=== PATIENT | female | born 1995 | race Hispanic/Latino ===

== ENCOUNTER 2020-03-10 09:17 | Inpatient (IN) | payer OTHER ==
[~2020-03-10] VITALS: Ht 149.9 cm; Wt 98.6 kg
[2020-03-10] VITALS (12 sets, daily range): BP systolic 103–136; BP diastolic 51–70
[2020-03-10] MEDS ORDERED: LACTATED RINGER'S 1000 ML IV STA (09:49)
[2020-03-10] MEDS ORDERED: PRENTAB9 PO (10:47)
[2020-03-10] MEDS ORDERED: LR 1,000 ML IV SCH (11:00)
[2020-03-10] MEDS ORDERED: BUTORPHANOL 2 MG/ML INJ (J0595) IV ONE (11:00)
[2020-03-10] MEDS ORDERED: PENICILLIN G POTASSIUM IV 5 MU in D5W MINI-BAG PLUS 100 ML IV ONE (11:00)
[2020-03-10 11:05] LABS: HEMATOCRIT 33.9 % (36.0-47.0); HEMOGLOBIN 10.3 g/dl (12.0-15.5); MEAN CORPUSCULAR HEMOGLOBIN 25.2 pg (27.0-33.0); MEAN CORPUSCULAR HGB CONC 30.4 g/dl (32.0-36.5); MEAN CORPUSCULAR VOLUME 82.9 fl (80.0-96.0); PLATELET COUNT, AUTOMATED 250 10^3/uL (150-450); RED BLOOD COUNT 4.09 10^6/uL (4.00-5.40); WHITE BLOOD COUNT 8.6 10^3/uL (4.0-10.0)
--- NOTE | 2020-03-10 11:33 | HPEPDOC ---
Obstetrical History & Physical General Date of Admission March 10, 2020 at 09:52 History of Present Illness Neris is a 25yo with SIUP at 39w1d by lmp c/w 9wk u/s presenting this morning for persistent painful ctx that began at 0500. Interview performed with hot man on ipad as patient only speaks Congolese. No LOF, good movement, no vaginal bleeding. No f/c/n/v/CP/SOB. Chief Complaint: Contractions, term Information Provided By: Patient Care Care: Good Care Dating Final EDC: March 15, 2020 Final EDC by: LMP, 1st trimester (US) Antepartum Course Diagnos(e)s Obesity (starting BMI 33), transfer in at 37 weeks, O negative MBT received rhogam at 28wk, GBS positive, anemia, on anatomy scan: left pyelectasis 0.83cm, right hydro 1.08cm Height (inches): 59 Pre- weight (lbs.): 165 Admission Weight (lbs.): 179 Change in Weight (lbs.): 14 Past Medical History Past Obstetrical History : Past Obstetrical History: Primgravida [employer] History: No pertinent history Past Medical History Medical History Obesity starting BMI 33 Surgical History: Denies/None Family History Significant Family History: No pertinent family hx Social History Marital Status: Family situation: Spouse/partner home Psychosocial History: No pertinent psych hx * Smoker: non-smoker Alcohol: Denies Drugs: denies Allergies Coded Allergies: No Known Allergies (Unverified , 03/10/20) Medications Scheduled No.137/Iron/Folic Acd ( Vitamin Tablet) 1 Each Tablet, 1 TAB PO DAILY Physical Examination Physical Examination GENERAL: Alert and oriented times three. ABDOMEN: Gravid and non-tender to touch. FETUS: Is vertex (VTX) by sterile vaginal examination (SVE) EXTREMITIES: No edema of BLE Vital Signs/I&O Vital Signs Date Time Temp Pulse Resp B/P (MAP) Pulse Ox O2 Delivery O2 Flow Rate FiO2 03/10/20 09:31 98.2 87 136/62 (86) Laboratory Data 24H LABS Laboratory Tests 2 03/10/20 10:01: Serology Scanned Report Hepatitis B Testing 03/10/20 10:43: 03/10/20 10:49: Nucleated Red Blood Cells % (auto) 0.0 CBC/BMP Laboratory Tests 03/10/20 10:49 Pertinent Laboratoy Data Blood Type: O- RBC Antibody Screen: Negative HIV: Negative Hepatitis B: Negative Hepatitis C: Unknown Rapid Plasma Reagin: Nonreactive Rubella: Immune Varicella: Immune Chlamydia/Gonorrhea: Unknown Group B Streptococcus: Positive Glucose Tolerance Test: 114 Anatomy Ultrasound Ultrasound Date: Nov 23, 2019 Placenta Location: Anterior Normal Anatomy: No (left pyelectasis 0.83cm, right hydro 1.08cm) Placenta Previa: No Steroid Therapy Steroid Therapy: No Vaginal Examination Dilation: 6 cm Effacement: 100% Station: -2 Cervical Consistency: Soft Cervical Position: Anterior Presentation: Cephalic presentation Assessment Heart Rate (FHR): 130 Variability: Moderate Accelerations: Positive Decelerations: Variable (occasional non-repetitive) Tocometer Contractions: Yes Frequency: regular, every 2-5 min. Duration: greater than 60 seconds Strength: palpated as strong Assessment/Plan Assessment Neris is a 25yo with SIUP at 39w1d by lmp c/w 9wk u/s in active labor with SCE 6/C/-2, ctx q2-5min. Intact membranes. Vitals wnl, afebrile, benign exam. Cat I-II FHRT with very small occasional variable decels, otherwise mod sanchez and +accels. PMhx/PNC complicated by: Obesity (starting BMI 33), transfer in at 37 weeks, O negative MBT received rhogam at 28wk, GBS positive, anemia, on anatomy scan: left pyelectasis 0.83cm, right hydro 1.08cm Plan Admit and orient. Collections Technician and consent. Diet: clear liquids Group B Streptococcus (GBS) positive: PCN per protocol Labs and intravenous (IV) per unit protocol. Lactated Ringers (LR): Bolus 1000 mL, then at 125 mL/hr. Anticipate normal spontaneous delivery () Candidate for epidural in active labor if desired Will notify NICU doctor regarding u/s finding of pyelectasis/hydro No g/c dna on file, will obtain urine g/c dna Safe to proceed MD Manjit Schulz Katrina D MD March 10, 2020 11:33
[2020-03-10] MEDS ORDERED: FENTANYL 2MCG/ML ROPIVACAINE 0.2% IN 0.9% NACL 100ML IVBAG As Ordered ONE (11:35)
[2020-03-10] MEDS ORDERED: OXYTOCIN 30 UNITS IN 0.9% NaCl 500ML IV BAG (J2590) As Ordered ONE (13:54)
[2020-03-10] MEDS ORDERED: MEASLES,MUMPS,RUBELLA VACCINE INJ (MMR-II) (90707) SC SCH (14:45)
[2020-03-10] MEDS ORDERED: DIBUCAINE 1% OINTMENT 30GM TOP PRN (14:45)
[2020-03-10] MEDS ORDERED: RHOGAM 300 MCG (1500 IU) INJ (J2790) IM SCH (14:45)
[2020-03-10] MEDS ORDERED: ACETAMINOPHEN TAB 650MG DOSE (2X325MG) PO PRN (14:45)
[2020-03-10] MEDS ORDERED: DOCUSATE SODIUM 100 MG CAP PO PRN (14:45)
[2020-03-10] MEDS ORDERED: IBUPROFEN 600 MG TAB PO PRN (14:45)
[2020-03-10] MEDS ORDERED: LIDOCAINE 1% MDV 20ML VIAL INFIL ONE (15:00)
[2020-03-10] MEDS ORDERED: OXYTOCIN DRIP 30 UNITS in IV 1 EA IV SCH (15:00)
[2020-03-10] MEDS ORDERED: PENICILLIN G POTASSIUM IV 2.5 MU in IV 1 EA IV SCH (15:15)
[2020-03-10] MEDS: IBUPROFEN 800 MG TAB PO PRN (15:40)
--- NOTE | 2020-03-10 17:12 | DNPDOC ---
[facility] Delivery Note Delivery Note DATE OF DELIVERY: 03/10/2020 PREDELIVERY DIAGNOSIS: 39w2d gestation and labor. POST DELIVERY DIAGNOSIS: Delivered. PROCEDURE: Spontaneous vaginal delivery MUSIC LIBRARY ASSISTANT: Dr. Indira Saravia MD ANESTHESIA: 1% lidocaine for repair ESTIMATED BLOOD LOSS: 350 mL. FINDINGS: 6 pound 9 ounce (2980g) female , Score 8/9, nuchal cord times 1 DELIVERY SUMMARY: Neris is a 24yo [id number] s/p uncomplicated at 13:53 on 03/10/20 when she presented to L&D in active labor at 39w2d. She progressed without epidural, experienced explosive SROM all over the floor when she was standing, thick meconium, and had recurrent variable heart rate decels. Soon after, she had a reducible anterior lip, and I instructed her to begin pushing. Within just a few sets of pushes, 's head delivered OA, restituted DELIA. Left anterior shoulder delivered with ease followed by right posterior shoulder, then remainder of body delivered to maternal abdomen where was dried and stimulated; nose and mouth suctioned with bulb suction, strong, lusty cry, apgars 8/9. At 2 minutes of life, cord clamped x2 and cut by FOB. Cord blood collected at this time for MBT O neg. With uterine massage and traction on the cord, placenta delivered spontaneously and intact with 3 vessel centrally inserted cord. Pitocin bolus started with delivery of placenta. Fundus then firm at u-1cm with hemostasis noted. Upon inspection of vagina and perineum, left and right labial lacerations and a 2mll were noted and repaired with 3-0 vicryl suture in usual fashion. Good cosmetic effect with total reapproximation and complete hemostasis noted. All counts correct x2. Mom and infant were doing well when I left the room. MD Manjit Schulz Katrina D MD March 10, 2020 16:21
[2020-03-10 18:51] LABS: CHLAMYDIA DNA AMPLIFICATION NEGATIVE (NEGATIVE); GC DNA AMPLIFICATION NEGATIVE (NEGATIVE)
[2020-03-10] MEDS: ACETAMINOPHEN 500 MG TAB PO PRN (21:27)
[2020-03-11 05:01] VITALS: BP 111/62
[2020-03-11] MEDS: PRENATAL VITAMINS CHEWABLE TABLET PO SCH (08:25)
[2020-03-11] MEDS: ACETAMINOPHEN 500 MG TAB PO PRN (08:26)
--- NOTE | 2020-03-11 09:52 | IPNPDOC ---
Progress Note Date of Service: March 11, 2020 Day#: 1 Progress Note PPD 1 SUBJECT: Neris is a 24yo [id number] s/p uncomplicated at 39w2d on 10 March at 13:53 after presenting in active labor, doing well day # 1. She has been ambulating, voiding spontaneously without issue and tolerating regular diet. Breast feeding without issue. Minimal discomfort. Reports lochia is like a normal period. No lightheadedness/dizziness, f/c/n/v/CP/SOB. OBJECTIVE: VITAL SIGNS: Within normal limits, afebrile. Alert and oriented times three. Abdomen: Fundus firm at U-2. Soft, NTTP. Extremities: trace edema of BLE, no pain with palpation of calves ASSESSMENT: Neris is a 24yo [id number] s/p uncomplicated at 39w2d on 10 March at 13:53 after presenting in active labor, doing well day # 1. Vitals within normal limits, afebrile, hemodynamically stable with no evidence of infection. PLAN: 1. Routine care 2. Tylenol and Motrin for pain. 3. Encourage breast feeding and ambulation. 4. Regular diet 5. Possible discharge tomorrow if meeting all milestones Dr. Indira Saravia MD VS, I&O, 24H, Fishbone Vital Signs/I&O Vital Signs Date Time Temp Pulse Resp B/P (MAP) Pulse Ox O2 Delivery O2 Flow Rate FiO2 03/11/20 05:01 98.6 85 15 111/62 (78) 99 Room Air I&O- Last 24 Hours up to 6 AM 03/11/20 06:00 Intake Total 2530 ml Output Total 700 ml Balance 1830 ml Laboratory Data 24H LABS Laboratory Tests 2 03/10/20 10:01: Serology Scanned Report Hepatitis B Testing 03/10/20 10:43: 03/10/20 10:49: Nucleated Red Blood Cells % (auto) 0.0 03/10/20 15:30: Chlamydia trachomatis DNA ([facility]) NEGATIVE, Neisseria gonorrhoeae DNA ([facility]) NEGATIVE CBC/BMP Laboratory Tests 03/10/20 10:49 Inidra Saravia MD March 11, 2020 09:51
[2020-03-11] MEDS: IBUPROFEN 800 MG TAB PO PRN (17:43)
[2020-03-11 18:21] VITALS: BP 107/60
[2020-03-12] MEDS: ACETAMINOPHEN 500 MG TAB PO PRN (02:24)
[2020-03-12 06:00] VITALS: BP 111/56
[2020-03-12] MEDS ORDERED: DIBU10OI TOP (06:56)
[2020-03-12] MEDS ORDERED: IBUP80TA PO (06:56)
[2020-03-12] MEDS ORDERED: DOCU100C16 PO (06:56)
[2020-03-12] MEDS: PRENATAL VITAMINS CHEWABLE TABLET PO SCH (09:01)
[2020-03-12] MEDS: IBUPROFEN 800 MG TAB PO PRN (09:03)
[2020-03-12] MEDS ORDERED: medroxyPROGESTERone ACET IM SUSP 150 MG/ML VIAL (J1050) IM ONE (11:15)
--- NOTE | 2020-03-13 17:25 | DSES ---
DATE OF ADMISSION: 03/10/2020 DATE OF DISCHARGE: 03/12/2020 A 25-year-old 1, now para 1, admitted at 39 and 1 weeks' of gestation with contractions. Had a spontaneous vaginal delivery, female, 6 pounds 9 ounces, 2980 grams, scores of 8 and 9 at one five minutes, respectively. She had a first-degree tear repaired with 1% lidocaine. Hemoglobin on admission 10.3, hematocrit 33.9, and platelets were 250. Her vital signs on discharge were 111/56, respirations 18, pulse 77, temperature 97.6. Through her who is presently back from [facility], because she speaks no Indonesian, we discussed phlebitis, cystitis, mastitis, metritis, cellulitis, diet, exercise, pain management, and perineal, breast, and wound care. Planned on picking up the medications at [place] on their way home. A 6-week checkup for the mother regarding control as well. Rest of the examination unremarkable. She is normocephalic, atraumatic. Neck: Full range of motion. Pupils equal and reactive to light. Distal pulses are symmetric. No evidence of deep vein thrombosis (DVT), pulmonary embolism (PE), or superficial phlebitis. Chest is clear bilaterally to bases. No wheezes or rhonchi. No costovertebral angle (CVA) tenderness. Abdomen: Soft. Uterus 2 below. Lochia is moderate. Four-quadrant bowel sounds are noted. Perineum is clean and dry. In summary, we have a term gestation, delivered a live- female , discharged improved.
== END 2020-03-12 15:05 | disposition home or self-care (01) | DRG 807 ==
LOC: M LDO 09:17 → EDBD 09:52 → M LDI 09:52 → M OBS 16:00
PROVIDERS: ADMIT Obstetrics & Gynecology; ATTEND Obstetrics & Gynecology
PROC: 10E0XZZ Delivery of Products of Conception, External Approach (ICD-10-PCS; principal; 2020-03-10)
PROC: 0HQ9XZZ Repair Perineum Skin, External Approach (ICD-10-PCS; 2020-03-10)
DX: O99.824 Streptococcus B carrier state complicating childbirth (principal); Z37.0 Single live birth; Z3A.39 39 weeks gestation of pregnancy; O77.0 Labor and delivery complicated by meconium in amniotic fluid; O76 Abnormality in fetal heart rate and rhythm complicating labor and delivery; O70.0 First degree perineal laceration during delivery

== ENCOUNTER 2020-03-13 07:17 | Emergency (ER) | payer OTHER ==
[~2020-03-13] VITALS: Ht 149.9 cm; Wt 78.1 kg
[~2020-03-13 07:17] MED LIST: DIBU10OI TOP; DOCU100C16 PO; IBUP80TA PO; PRENTAB9 PO
[2020-03-13 08:10] LABS: AMORPHOUS SEDIMENT SMALL (NEGATIVE); APPEARANCE, URINE HAZY (CLEAR); BACTERIA, URINE AUTO 1+ (NEGATIVE); BILIRUBIN, URINE AUTO NEGATIVE (NEGATIVE); BLOOD, URINE BLOOD 3+ (NEGATIVE); COLOR, URINE AMBER (YELLOW); GLUCOSE, URINE (UA) AUTO NEGATIVE (NEGATIVE); KETONE, URINE AUTO NEGATIVE (NEGATIVE); LEUKOCYTE ESTERASE, URINE AUTO 2+ (NEGATIVE); MUCUS, URINE SMALL (NEGATIVE); NITRITE, URINE AUTO NEGATIVE (NEGATIVE); PROTEIN, URINE AUTO 1+ mg/dL (NEGATIVE); RBC, URINE AUTO TNTC /HPF (0-3); SPECIFIC GRAVITY URINE AUTO 1.019 (1.002-1.035); SQUAMOUS EPITHELIAL CELL UR AU 3 /HPF (0-6); WBC, URINE AUTO 52 /HPF (0-3)
[2020-03-13] MEDS ORDERED: ACETAMINOPHEN 325 MG TAB PO ONE (08:15)
[2020-03-13 08:17] LABS: BASO % 0.3 % (0.0-1.0); EOS # 0.1 10^3/uL (0.0-0.5); EOS % 1.3 % (0.0-3.0); HEMATOCRIT 30.1 % (36.0-47.0); HEMOGLOBIN 9.1 g/dl (12.0-15.5); LYMPH # 1.3 10^3/uL (1.5-5.0); LYMPH % 18.6 % (24.0-44.0); MEAN CORPUSCULAR HEMOGLOBIN 25.8 pg (27.0-33.0); MEAN CORPUSCULAR HGB CONC 30.2 g/dl (32.0-36.5); MEAN CORPUSCULAR VOLUME 85.3 fl (80.0-96.0); MONO # 0.4 10^3/uL (0.0-0.8); MONO % 5.5 % (0.0-5.0); NEUTROPHILS # 5.1 10^3/uL (1.5-8.5); NEUTROPHILS % 73.6 % (36.0-66.0); PLATELET COUNT, AUTOMATED 263 10^3/uL (150-450); RED BLOOD COUNT 3.53 10^6/uL (4.00-5.40); WHITE BLOOD COUNT 6.9 10^3/uL (4.0-10.0)
[2020-03-13 08:30] LABS: ALBUMIN 2.7 GM/DL (3.2-5.2); ALT/SGPT 106 U/L (12-78); BILIRUBIN,DIRECT 0.9 MG/DL (0.0-0.2); BILIRUBIN,TOTAL 1.3 MG/DL (0.2-1.0); BLOOD UREA NITROGEN 9 MG/DL (7-18); CARBON DIOXIDE LEVEL 23 MEQ/L (21-32); CHLORIDE LEVEL 112 MEQ/L (98-107); CREATININE FOR GFR 0.48 MG/DL (0.55-1.30); GLOMERULAR FILTRATION RATE > 60.0 (>60); GLUCOSE, FASTING 85 MG/DL (70-100); LIPASE 111 U/L (73-393); POTASSIUM SERUM 3.9 MEQ/L (3.5-5.1); SODIUM LEVEL 144 MEQ/L (136-145); TOTAL PROTEIN 6.1 GM/DL (6.4-8.2)
--- NOTE | 2020-03-13 08:43 | REP ---
Q. abdominal series: Three views. History: Epigastric pain. . Findings: Upright chest radiograph shows no evidence of infiltrate or free subdiaphragmatic air. Heart size is borderline. Pulmonary vasculature is not increased. No bony abnormality. Supine and erect views of the abdomen reveal a normal bowel gas pattern. Psoas margins and flank stripes are intact. No mass, organomegaly, or pathologic calcification is seen. Impression: Unremarkable abdominal series. Electronically Signed by Mata Olmstead MD 03/13/2020 08:35 A
--- NOTE | 2020-03-13 10:31 | REP ---
RIGHT UPPER QUADRANT ULTRASOUND: Real-time sonographic evaluation of the right upper quadrant performed. Multiple subcentimeter gallstones are seen in the gallbladder. There is no gallbladder wall thickening or pericholecystic fluid. There is no intrahepatic or extrahepatic biliary dilatation, common bile duct measuring 3 mm. Liver and pancreas demonstrate homogeneous echotexture with no gross mass. Right kidney demonstrates no hydronephrosis with normal size 12.5 cm in length. There is a lateral cyst 1.3 cm in diameter. IMPRESSION: Multiple subcentimeter gallstones in the gallbladder without gallbladder wall thickening or pericholecystic fluid or biliary dilatation. Electronically Signed by Travon Iglesias MD 03/13/2020 12:48 P
[2020-03-13 11:29] VITALS: BP 112/70
[2020-03-28] MEDS ORDERED: MAPA325T8 PO (14:43)
== END 2020-03-13 11:38 | disposition home or self-care (01) ==
LOC: M ED 07:17
DX: K80.20 Calculus of gallbladder without cholecystitis without obstruction (principal); R79.89 Other specified abnormal findings of blood chemistry

== ENCOUNTER 2020-03-14 11:40 | Emergency (ER) | payer OTHER ==
[~2020-03-14] VITALS: Ht 149.9 cm; Wt 76.5 kg
[2020-03-14 12:35] LABS: BASO % 0.4 % (0.0-1.0); EOS # 0.1 10^3/uL (0.0-0.5); EOS % 1.3 % (0.0-3.0); HEMATOCRIT 31.2 % (36.0-47.0); HEMOGLOBIN 9.5 g/dl (12.0-15.5); LYMPH # 1.2 10^3/uL (1.5-5.0); MEAN CORPUSCULAR HEMOGLOBIN 25.9 pg (27.0-33.0); MEAN CORPUSCULAR HGB CONC 30.4 g/dl (32.0-36.5); MONO # 0.4 10^3/uL (0.0-0.8); MONO % 5.3 % (0.0-5.0); NEUTROPHILS # 5.3 10^3/uL (1.5-8.5); NEUTROPHILS % 75.6 % (36.0-66.0); PLATELET COUNT, AUTOMATED 281 10^3/uL (150-450); RED BLOOD COUNT 3.67 10^6/uL (4.00-5.40)
[2020-03-14 12:48] LABS: ALBUMIN 2.7 GM/DL (3.2-5.2); ALT/SGPT 175 U/L (12-78); BILIRUBIN,DIRECT 0.2 MG/DL (0.0-0.2); BILIRUBIN,TOTAL 0.6 MG/DL (0.2-1.0); BLOOD UREA NITROGEN 9 MG/DL (7-18); CALCIUM LEVEL 8.3 MG/DL (8.5-10.1); CARBON DIOXIDE LEVEL 26 MEQ/L (21-32); CHLORIDE LEVEL 111 MEQ/L (98-107); CREATININE FOR GFR 0.57 MG/DL (0.55-1.30); GLOMERULAR FILTRATION RATE > 60.0 (>60); GLUCOSE, FASTING 66 MG/DL (70-100); LIPASE 89 U/L (73-393); SODIUM LEVEL 142 MEQ/L (136-145); TOTAL PROTEIN 6.1 GM/DL (6.4-8.2)
[2020-03-14 12:56] VITALS: BP 128/82
[2020-03-28] MEDS ORDERED: MAPA325T8 PO (14:43)
== END 2020-03-14 13:08 | disposition home or self-care (01) ==
LOC: M ED 11:40
DX: K80.70 Calculus of gallbladder and bile duct without cholecystitis without obstruction (principal); R74.8 Abnormal levels of other serum enzymes; D64.9 Anemia, unspecified

== ENCOUNTER 2020-03-16 18:08 | Emergency (ER) | payer OTHER ==
[~2020-03-16] VITALS: Ht 149.9 cm; Wt 75.2 kg
[2020-03-16] MEDS ORDERED: ACET-683 PO (18:16)
[2020-03-16] MEDS ORDERED: ONDANSETRON 4MG/2ML VIAL IV ONE (18:30)
[2020-03-16] MEDS ORDERED: NS 1,000 ML IV ONE (18:30)
[2020-03-16] MEDS ORDERED: MORPHINE 4 MG/ML 1ML VIAL/SYRINGE (J2270) IV ONE (18:30)
[2020-03-16 18:53] LABS: BASO % 0.5 % (0.0-1.0); EOS # 0.1 10^3/uL (0.0-0.5); EOS % 1.1 % (0.0-3.0); HEMATOCRIT 33.9 % (36.0-47.0); HEMOGLOBIN 10.2 g/dl (12.0-15.5); LYMPH # 1.6 10^3/uL (1.5-5.0); LYMPH % 24.2 % (24.0-44.0); MEAN CORPUSCULAR HEMOGLOBIN 25.5 pg (27.0-33.0); MEAN CORPUSCULAR HGB CONC 30.1 g/dl (32.0-36.5); MEAN CORPUSCULAR VOLUME 84.8 fl (80.0-96.0); MONO # 0.4 10^3/uL (0.0-0.8); MONO % 5.8 % (0.0-5.0); NEUTROPHILS # 4.5 10^3/uL (1.5-8.5); NEUTROPHILS % 68.2 % (36.0-66.0); PLATELET COUNT, AUTOMATED 300 10^3/uL (150-450); WHITE BLOOD COUNT 6.6 10^3/uL (4.0-10.0)
[2020-03-16 19:03] LABS: INR 1.21
[2020-03-16 19:04] LABS: PARTIAL THROMBOPLASTIN TIME 27.8 SECONDS (25.0-38.4)
[2020-03-16 19:17] LABS: BILIRUBIN,DIRECT 0.6 MG/DL (0.0-0.2); TOTAL PROTEIN 6.8 GM/DL (6.4-8.2)
--- NOTE | 2020-03-16 19:39 | REPVR ---
PROCEDURE INFORMATION: Exam: US Abdomen Limited, Right Upper Quadrant Exam date and time: 03/16/2020 7:24 PM Age: 24 years old Clinical indication: Abdominal pain; Acute; Additional info: Ruq pain worse, +gallstones TECHNIQUE: Imaging protocol: Real-time ultrasound of the abdomen with image documentation. Examination was focused on the right upper quadrant. COMPARISON: GALLBLADDER US 03/13/2020 9:49 AM FINDINGS: Liver: Unremarkable. Gallbladder: Mildly distended with small dependent gallstones. No gallbladder wall thickening or pericholecystic fluid. Common bile duct: No stones. No ductal dilatation. Pancreas: Unremarkable as visualized. Right kidney: 1.4 x 0.8 x 0.9 cm lower pole cyst. No solid mass. No definite stones. No hydronephrosis. IMPRESSION: Cholelithiasis without sonographic evidence of acute cholecystitis. Electronically signed by: Teo Rangel On 03/16/2020 19:38:48 PM
[2020-03-16] MEDS ORDERED: OXYCODONE/APAP 5MG/325MG(BULK FOR ED) 1 TABLET PO ONE (20:30)
[2020-03-16] MEDS ORDERED: PERC5TAB12 PO (20:38)
[2020-03-16 20:47] VITALS: BP 132/60
[2020-03-28] MEDS ORDERED: MAPA325T8 PO (14:43)
== END 2020-03-16 20:54 | disposition home or self-care (01) ==
LOC: M ED 18:08
DX: K80.20 Calculus of gallbladder without cholecystitis without obstruction (principal); N95.0 Postmenopausal bleeding; R94.5 Abnormal results of liver function studies
CPT/HCPCS: 76705; 80047; 80076; 81001; 83605; 83690; 84702; 85025; 85610; 85730; 87086; 96361; 96374; 96375; 99284; J2270; J2405

== ENCOUNTER 2020-03-22 23:35 | Emergency (ER) | payer OTHER ==
[~2020-03-22] VITALS: Ht 149.9 cm; Wt 80.9 kg
[~2020-03-22 23:35] MED LIST changes: +ACET-683 PO; +PERC5TAB12 PO
--- NOTE | 2020-03-23 00:27 | REPVR ---
PROCEDURE INFORMATION: Exam: US Abdomen Limited, Right Upper Quadrant Exam date and time: 03/23/2020 12:14 AM Age: 24 years old Clinical indication: Abdominal pain; Acute; Additional info: Gb/biliary eval TECHNIQUE: Imaging protocol: Real-time ultrasound of the abdomen with image documentation. Examination was focused on the right upper quadrant. COMPARISON: GALLBLADDER US 03/16/2020 7:11 PM FINDINGS: Liver: The echogenicity of the liver is within normal limits. No liver lesion is identified from the images obtained. The contour of the liver is smooth. Gallbladder: There are several echogenic calculi that demonstrate posterior acoustic shadowing in the gallbladder. No gallbladder wall thickening or pericholecystic fluid is noted. No sonographic Grider's sign was reported by the radiology technologist. Common bile duct: The common bile duct is dilated and measures 10 mm in diameter at the level of the mary hepatis. Pancreas: The imaged portion of the pancreas is unremarkable. Right kidney: The right kidney measures 12.2 cm in length. There is a 9 mm x 7 mm x 8 mm simple cyst in the lower pole of the right kidney, which is stable compared to the prior ultrasound on 03/16/2020 and for which follow-up is not necessary. The right renal cortical echogenicity is within normal limits. There is no right hydronephrosis. No obvious stones are seen in the right renal collecting system. Intraperitoneal space: No free fluid is seen from the images obtained. IMPRESSION: 1. Cholelithiasis without sonographic evidence for cholecystitis. 2. Dilated common bile duct (10 mm). Electronically signed by: Luis F Mena On 03/23/2020 00:27:03 AM
[2020-03-23 00:36] LABS: BASO % 0.4 % (0.0-1.0); EOS # 0.1 10^3/uL (0.0-0.5); EOS % 1.3 % (0.0-3.0); HEMATOCRIT 41.2 % (36.0-47.0); HEMOGLOBIN 12.7 g/dl (12.0-15.5); LYMPH # 1.4 10^3/uL (1.5-5.0); LYMPH % 19.3 % (24.0-44.0); MEAN CORPUSCULAR HEMOGLOBIN 25.7 pg (27.0-33.0); MEAN CORPUSCULAR HGB CONC 30.8 g/dl (32.0-36.5); MEAN CORPUSCULAR VOLUME 83.2 fl (80.0-96.0); MONO # 0.4 10^3/uL (0.0-0.8); NEUTROPHILS # 5.2 10^3/uL (1.5-8.5); NEUTROPHILS % 72.7 % (36.0-66.0); PLATELET COUNT, AUTOMATED 359 10^3/uL (150-450); RED BLOOD COUNT 4.95 10^6/uL (4.00-5.40); WHITE BLOOD COUNT 7.2 10^3/uL (4.0-10.0)
[2020-03-23 00:56] LABS: BLOOD UREA NITROGEN 11 MG/DL (7-18); CALCIUM LEVEL 9.3 MG/DL (8.5-10.1); CARBON DIOXIDE LEVEL 24 MEQ/L (21-32); CHLORIDE LEVEL 108 MEQ/L (98-107); CREATININE FOR GFR 0.53 MG/DL (0.55-1.30); GLOMERULAR FILTRATION RATE > 60.0 (>60); GLUCOSE, FASTING 81 MG/DL (70-100); POTASSIUM SERUM 4.1 MEQ/L (3.5-5.1); SODIUM LEVEL 140 MEQ/L (136-145)
[2020-03-23 00:57] LABS: ALBUMIN 3.7 GM/DL (3.2-5.2); ALT/SGPT 103 U/L (12-78); BILIRUBIN,DIRECT 0.8 MG/DL (0.0-0.2); BILIRUBIN,TOTAL 1.2 MG/DL (0.2-1.0); LIPASE 87 U/L (73-393); TOTAL PROTEIN 7.8 GM/DL (6.4-8.2)
[2020-03-23] MEDS ORDERED: MORPHINE 4 MG/ML 1ML VIAL/SYRINGE (J2270) IV ONE (01:30)
[2020-03-23 03:15] VITALS: BP 128/74
[2020-03-28] MEDS ORDERED: MAPA325T8 PO (14:43)
== END 2020-03-23 03:32 | disposition short-term general hospital (02) ==
LOC: M ED 23:35
DX: O99.63 Diseases of the digestive system complicating the puerperium (principal); K80.50 Calculus of bile duct without cholangitis or cholecystitis without obstruction
CPT/HCPCS: 76705; 80048; 80076; 83690; 85025; 96374; 99285; J2270

== ENCOUNTER 2020-04-02 10:55 | Day surgery (SDC) | payer OTHER ==
[~2020-04-02] VITALS: Ht 149.9 cm; Wt 67.6 kg
[~2020-04-02 10:55] MED LIST changes: +LIDOCAINE 1% MDV 20ML VIAL SQ PRN; +LR 1,000 ML IV ONE; +MAPA325T8 PO; +ceFAZolin SOD 1 GM in D5W MINI-BAG PLUS 50 ML IV ONE
[2020-04-02] MEDS ORDERED: SUCCINYLCHOLINE 100 MG/5 ML SYRINGE (J0330) As Ordered ONE (12:38)
[2020-04-02] MEDS ORDERED: LIDOCAINE 2% 100MG/5ML SDV (FOR ANES.) As Ordered ONE (12:38)
[2020-04-02] MEDS ORDERED: propofoL 200 MG/20 ML VIAL As Ordered ONE (12:38)
[2020-04-02] MEDS ORDERED: ROCURONIUM BROMIDE 50 MG/5 ML VIAL As Ordered ONE (12:38)
[2020-04-02] MEDS ORDERED: fentaNYL 250 MCG/5 ML INJECTION (J3010) As Ordered ONE (12:38)
[2020-04-02] MEDS ORDERED: MIDAZOLAM INJ 2MG/2ML VIAL (J2250 PER 1MG) As Ordered ONE (12:39)
[2020-04-02] MEDS ORDERED: BUPIVACAINE/EPIN 0.25% 30 ML VIAL As Ordered ONE (13:00)
[2020-04-02] MEDS ORDERED: METOCLOPRAMIDE INJ 10MG/2ML VIAL (J2765 PER 1) As Ordered ONE (14:11)
[2020-04-02] MEDS ORDERED: ONDANSETRON 4MG/2ML VIAL As Ordered ONE (14:11)
[2020-04-02] MEDS ORDERED: KETOROLAC 60 MG/2 ML VIAL As Ordered ONE (14:11)
[2020-04-02] MEDS ORDERED: SUGAMMADEX SODIUM 500 MG/5 ML VIAL (BRIDION) As Ordered ONE (14:11)
--- NOTE | 2020-04-02 14:26 | RO ---
DATE OF PROCEDURE: 04/02/2020 PREOPERATIVE DIAGNOSIS: Symptomatic gallstones. POSTOPERATIVE DIAGNOSIS: Symptomatic gallstones. PROCEDURE: Laparoscopic cholecystectomy. SURGEON: Deshaun Jett MD HOTEL CONCIERGE: ANESTHESIA: General endotracheal anesthesia. ESTIMATED BLOOD LOSS (EBL). Minimal. FLUIDS: Crystalloid. BRIEF PROCEDURE SUMMARY: The patient was brought to the operating room, was given general anesthesia. After adequate anesthesia and preoperative antibiotics were given, the patient was prepped and draped in the usual sterile fashion. Next, a supraumbilical incision was made with skin knife. Blunt dissection was carried down to fascia. Veress needle placed into the abdominal cavity, insufflated to 15 mm of pressure. A dilating 10 mm trocar was placed under direct visualization in the epigastric and two lateral trocars were placed. The gallbladder was grasped, retracted superiorly and the neck of the gallbladder was cleared of peritoneum using hook cautery. The window behind the neck of the gallbladder was created and the cystic artery as well as cystic duct was identified. The cystic artery was followed up onto the gallbladder for about a centimeter or two and it was clipped proximally and distally and transected. The gallbladder then was further mobilized at this time revealing an excellent window behind the neck of the gallbladder up onto the cystic plate and down towards the common bile duct, which could be visualized medially. Where the cystic duct met with the neck of the gallbladder there was a nice taper and this was clipped proximally and distally and transected. The gallbladder was removed from the gallbladder bed using electrocautery, placed in an Endo Catch bag and brought out through the umbilicus. The right upper quadrant was copiously irrigated until clear. All trocar sites were closed with #4-0 Vicryl after the fascia was closed with #0 Vicryl. Steri-Strips and dry sterile dressing was applied. The patient was awakened, extubated, brought to recovery room awake, alert and hemodynamically stable. Sponge and needle counts correct times two.
[2020-04-02] MEDS ORDERED: PERCOCET 5MG/325MG TAB PO PRN (14:30)
[2020-04-02] MEDS ORDERED: ONDANSETRON 4MG/2ML VIAL IV PRN ×2 (14:30)
[2020-04-02] MEDS ORDERED: fentaNYL 100 MCG/2 ML INJECTION (J3010) IV PRN (14:30)
[2020-04-02] MEDS ORDERED: LR 1,000 ML IV SCH ×2 (14:30)
[2020-04-02 16:40] VITALS: BP 120/72
== END 2020-04-02 16:45 | disposition home or self-care (01) ==
LOC: M SDC 10:55
PROVIDERS: ATTEND Surgery
DX: K80.10 Calculus of gallbladder with chronic cholecystitis without obstruction (principal)
CPT/HCPCS: 47562; 81025; 88304; J0330; J0690; J1885; J2250; J2405; J2765; J3010

== ENCOUNTER 2025-07-18 16:57 | Emergency (ER) | payer OTHER ==
[~2025-07-18 16:57] MED LIST changes: -DIBU10OI TOP; +DIBU28OI2 TOP; -LIDOCAINE 1% MDV 20ML VIAL SQ PRN; -LR 1,000 ML IV ONE; -ceFAZolin SOD 1 GM in D5W MINI-BAG PLUS 50 ML IV ONE
[2025-07-18] MEDS ORDERED: ISOVUE-370 76% 100 ML VIAL As Ordered ONE (17:18)
[2025-07-18 17:19] LABS: VENOUS BASE EXCESS -2.6 (-2.0-2.0); VENOUS HCO3 21.2 MMOL/L (23.0-27.0); VENOUS O2 SATURATION 94.8 % (60.0-80.0); VENOUS PARTIAL PRESSURE CO2 32.8 mmHg (38.0-50.0); VENOUS PARTIAL PRESSURE O2 75.7 mmHg (30.0-50.0); VENOUS PH 7.428 UNITS (7.330-7.430); VENOUS STANDARD HCO3 22.3 MMOL/L; VENOUS TOTAL CO2 22.2 MMOL/L (24.0-28.0)
[2025-07-18 17:22] LABS: BASO # 0.0 10^3/uL (0.0-0.2); BASO % 0.2 % (0.0-1.0); EOS # 0.1 10^3/uL (0.0-0.5); EOS % 1.3 % (0.0-3.0); LYMPH # 1.6 10^3/uL (1.5-5.0); LYMPH % 30.7 % (24.0-44.0); MONO # 0.4 10^3/uL (0.0-0.8); MONO % 7.2 % (2.0-8.0); NEUTROPHILS # 3.2 10^3/uL (1.5-8.5); NEUTROPHILS % 59.8 % (36.0-66.0); PLATELET COUNT, AUTOMATED 281 10^3/uL (150-450)
[2025-07-18 17:42] VITALS: O2SAT 100
[2025-07-18 17:45] LABS: INR 1.01
[2025-07-18] MEDS: NS (Normal Saline) 0.9% 1,000 ML IV ONE (17:51)
[2025-07-18 17:53] VITALS: BP 109/66
[2025-07-18 17:53] LABS: ALT/SGPT 10 U/L (7.0-40); AST/SGOT 15 U/L (<34); CALCIUM LEVEL 8.9 MG/DL (8.5-10.1); CARBON DIOXIDE LEVEL 22 MMOL/L (20-31); CHLORIDE LEVEL 106 MMOL/L (98-107); CREATININE FOR GFR 0.33 MG/DL (0.55-1.30); GLOMERULAR FILTRATION RATE > 90.0 (>60); POTASSIUM SERUM 3.5 MMOL/L (3.5-5.1); SODIUM LEVEL 137 MMOL/L (136-145)
[2025-07-18 17:55] VITALS: TEMP 98.1
[2025-07-18 18:19] LABS: APPEARANCE, URINE CLEAR (CLEAR); BACTERIA, URINE AUTO NEGATIVE (NEGATIVE); BILIRUBIN, URINE AUTO NEGATIVE (NEGATIVE); BLOOD, URINE BLOOD 1+ (NEGATIVE); GLUCOSE, URINE (UA) AUTO NEGATIVE (NEGATIVE); KETONE, URINE AUTO NEGATIVE (NEGATIVE); LEUKOCYTE ESTERASE, URINE AUTO NEGATIVE (NEGATIVE); MUCUS, URINE SMALL (NEGATIVE); NITRITE, URINE AUTO NEGATIVE (NEGATIVE); PROTEIN, URINE AUTO NEGATIVE (NEGATIVE); RBC, URINE AUTO 0 /HPF (0-3); SPECIFIC GRAVITY URINE AUTO 1.009 (1.002-1.035); SQUAMOUS EPITHELIAL CELL UR AU 2 /HPF (0-6); UROBILINOGEN, URINE AUTO 0.2 mg/dL (0.0-2.0); WBC, URINE AUTO 0 /HPF (0-3)
[2025-07-18] MEDS: ACETAMINOPHEN *IV* 1,000 MG in IV 1 EA IV ONE (18:31)
[2025-07-18] MEDS ORDERED: PNV1TABL16 PO (19:22)
== END 2025-07-18 18:58 | disposition admitted as inpatient to this hospital (09) ==
LOC: M ED 16:57 → EDBD 16:57 → M ED 18:58
DX: O9A.213 Injury, poisoning and certain other consequences of external causes complicating pregnancy, third trimester (principal); S13.4XXA Sprain of ligaments of cervical spine, initial encounter; O26.893 Other specified pregnancy related conditions, third trimester; S09.90XA Unspecified injury of head, initial encounter; O71.7 Obstetric hematoma of pelvis; V49.40XA Driver injured in collision with unspecified motor vehicles in traffic accident, initial encounter; N28.1 Cyst of kidney, acquired; K59.00 Constipation, unspecified; J98.11 Atelectasis; Y92.410 Unspecified street and highway as the place of occurrence of the external cause; Y93.89 Activity, other specified; Y99.9 Unspecified external cause status; Z79.1 Long term (current) use of non-steroidal anti-inflammatories (NSAID); Z79.899 Other long term (current) drug therapy; Z3A.00 Weeks of gestation of pregnancy not specified
CPT/HCPCS: 70450; 71260; 72125; 72128; 72131; 74177; 80047; 80048; 80076; 81001; 82150; 82803; 83605; 83690; 85025; 85384; 85610; 85730; 86850; 86900; 86901; 93005; 93041; 94760; 96374; 99285; J0131; Q9967

== ENCOUNTER 2025-07-18 18:52 | Inpatient (IN) | payer OTHER ==
[~2025-07-18] VITALS: Ht 149.9 cm; Wt 81.8 kg
[2025-07-18] MEDS ORDERED: PNV1TABL16 PO (19:22)
[2025-07-18 19:29] VITALS: BP 109/63
[2025-07-18 20:57] LABS: HIV 1&2 SCREEN NEGATIVE (NEGATIVE)
[2025-07-18] MEDS: ACETAMINOPHEN 500 MG TAB PO PRN (20:59)
[2025-07-18 21:07] LABS: HEPATITIS C VIRUS ABY INDEX < 0.02 INDEX (<0.8)
[2025-07-18 22:13] VITALS: BP 98/56
[2025-07-18] MEDS: RHOGAM 300MCG (1500IU) INJ IM SCH (23:06)
[2025-07-19] VITALS (12 sets, daily range): BP systolic 98–130; BP diastolic 54–62
[2025-07-19 06:22] LABS: PLATELET COUNT, AUTOMATED 262 10^3/uL (150-450)
[2025-07-19 06:39] LABS: INR 1.08
[2025-07-20 01:58] VITALS: BP 116/58
[2025-07-20 06:16] VITALS: BP 126/61
[2025-07-20 06:42] LABS: PLATELET COUNT, AUTOMATED 271 10^3/uL (150-450)
[2025-07-20 07:39] VITALS: BP 132/63
[2025-07-20 07:40] LABS: INR 1.03
[2025-07-20 11:30] VITALS: BP 122/61
[2025-07-20 14:04] VITALS: BP 137/67
== END 2025-07-20 17:56 | disposition home or self-care (01) | DRG 566 ==
LOC: M LDO 18:52 → M LDI 19:00
PROVIDERS: ADMIT Specialist; ATTEND Specialist
DX: O9A.213 Injury, poisoning and certain other consequences of external causes complicating pregnancy, third trimester (principal); Z3A.30 30 weeks gestation of pregnancy; S37.62XA Contusion of uterus, initial encounter; V43.52XA Car driver injured in collision with other type car in traffic accident, initial encounter

== ENCOUNTER 2025-08-05 16:35 | Emergency (ER) | payer OTHER ==
[~2025-08-05 16:35] MED LIST changes: +PNV1TABL16 PO
[2025-08-05] MEDS ORDERED: ONDANSETRON 4MG 2ML VIAL IV PRN (19:45)
== END 2025-08-05 17:23 | disposition admitted as inpatient to this hospital (09) ==
LOC: M ED 16:35
DX: Z53.21 Procedure and treatment not carried out due to patient leaving prior to being seen by health care provider (principal)

== ENCOUNTER 2025-08-05 16:44 | Outpatient (CLI) | payer OTHER ==
[~2025-08-05] VITALS: Ht 149.9 cm; Wt 82.5 kg
[2025-08-05] MEDS: LACTATED RINGER'S 1000 ML IV STA (16:10)
[2025-08-05] MEDS: OMEPRAZOLE 20MG CAP PO ONE (18:35)
[2025-08-05 18:41] LABS: PLATELET COUNT, AUTOMATED 276 10^3/uL (150-450)
[2025-08-05 19:08] LABS: ALT/SGPT < 9 U/L (7.0-40); AST/SGOT 36 U/L (<34); CALCIUM LEVEL 9.1 MG/DL (8.5-10.1); CARBON DIOXIDE LEVEL 20 MMOL/L (20-31); CHLORIDE LEVEL 107 MMOL/L (98-107); CREATININE FOR GFR 0.31 MG/DL (0.55-1.30); GLOMERULAR FILTRATION RATE > 90.0 (>60); POTASSIUM SERUM 4.3 MMOL/L (3.5-5.1); SODIUM LEVEL 141 MMOL/L (136-145)
[2025-08-05] MEDS: LR 1,000 ML IV SCH (19:15)
[2025-08-05] MEDS: ONDANSETRON 4MG 2ML VIAL IV ONE (19:50)
== END 2025-08-05 21:08 | disposition home or self-care (01) ==
LOC: M LDO 16:44
PROVIDERS: ATTEND Specialist
DX: O21.8 Other vomiting complicating pregnancy (principal); O26.893 Other specified pregnancy related conditions, third trimester; R42 Dizziness and giddiness; Z3A.32 32 weeks gestation of pregnancy
CPT/HCPCS: 59025; 80053; 85027; 96374; G0463; J2405

== ENCOUNTER → 2025-09-26 | Outpatient (REF) | payer OTHER ==
[~2025-09-26] MED LIST changes: +ACET32TAB PO; +IBUP600T42 PO
== END ==
LOC: M SFHCWAGY 12:37
PROVIDERS: ATTEND Advanced Practice Midwife
DX: Z3A.40 40 weeks gestation of pregnancy (principal)